=== PATIENT | male | born 1970 | race Caucasian/White ===

== ENCOUNTER → 2019-09-14 | Outpatient (CLI) | payer OTHER ==
[2019-09-15 09:27] LABS: RUBELLA AB IGG-REFLAB 2.52 index (Immune >0.99); RUBEOLA (MEASLES) IGG >300.0 AU/mL (Immune >16.4)
== END | disposition home or self-care (01) ==
LOC: LABMN 08:47
PROVIDERS: ATTEND Internal Medicine
DX: Z02.1 Encounter for pre-employment examination (principal)
CPT/HCPCS: 86706; 86735; 86762; 86765; 86787